=== PATIENT | female | born 1955 | race Two or more races ===

== ENCOUNTER 2018-12-29 05:35 | Day surgery (SDC) | payer OTHER ==
[~2018-12-29 05:35] MED LIST: CLONAZEPAM1 M1 PO; FORTAMET500 MG PO; LOSARTAN PO; NEURONTIN800 MG PO; NORVASC2.5 M1 PO; ZOLOFT50 MG PO
== END 2018-12-29 13:00 | disposition home or self-care (01) ==
LOC: CIR.AMB 05:35
DX: G56.02 Carpal tunnel syndrome, left upper limb (principal)

== ENCOUNTER 2021-03-02 19:45 | Emergency (ER) | payer OTHER ==
[~2021-03-02] VITALS: Ht 160 cm; Wt 99.8 kg
== END 2021-03-02 21:25 | disposition home or self-care (01) ==
LOC: ER 19:45
DX: M54.5 Low back pain (principal)

== ENCOUNTER 2021-11-11 14:12 | Emergency (ER) | payer OTHER ==
[~2021-11-11] VITALS: Ht 160 cm; Wt 54.4 kg
[2021-11-11] MEDS ORDERED: NORVASC10 MG PO (14:34)
[2021-11-11] MEDS ORDERED: COZAAR100 MG PO (14:34)
[2021-11-11] MEDS ORDERED: NAPROXEN500 MG PO (15:59)
== END 2021-11-11 16:11 | disposition home or self-care (01) ==
LOC: ER 14:12
DX: M19.90 Unspecified osteoarthritis, unspecified site (principal)

== ENCOUNTER 2022-01-17 11:43 | Inpatient (IN) | payer OTHER ==
[~2022-01-17] VITALS: Ht 160 cm; Wt 99.8 kg
[~2022-01-17 11:43] MED LIST changes: +COZAAR100 MG PO; +NAPROXEN500 MG PO; +NORVASC10 MG PO
[2022-01-17] MEDS ORDERED: SIMVASTAT PO (14:55)
[2022-01-30] MEDS ORDERED: SIMVASTATIN20 MG (13:53)
[2022-02-01] MEDS ORDERED: ELIQUIS2.5 MG PO (18:10)
[2022-02-01] MEDS ORDERED: CEFADROXIL500 MG PO (18:10)
[2022-02-01] MEDS ORDERED: PERCOCET 5-3251 EACH PO (18:10)
== END 2022-02-02 00:32 | disposition home or self-care (01) | DRG 470 ==
LOC: O/R 01-30 06:15 → SURH 01-30 06:15 → SURG 01-30 10:15 → SURH 01-30 15:39
PROVIDERS: ADMIT Orthopaedic Surgery; ATTEND Orthopaedic Surgery
PROC: 0SRD0J9 Replacement of Left Knee Joint with Synthetic Substitute, Cemented, Open Approach (ICD-10-PCS; principal; 2022-01-30 10:15)
DX: M17.12 Unilateral primary osteoarthritis, left knee (principal); D62 Acute posthemorrhagic anemia; M22.12 Recurrent subluxation of patella, left knee; E66.01 Morbid (severe) obesity due to excess calories; I10 Essential (primary) hypertension; E11.9 Type 2 diabetes mellitus without complications

== ENCOUNTER 2023-05-03 09:09 | Outpatient (CLI) | payer OTHER ==
[~2023-05-03 09:09] MED LIST changes: +CEFADROXIL500 MG PO; +ELIQUIS2.5 MG PO; +PERCOCET 5-3251 EACH PO; +SIMVASTAT PO; +SIMVASTATIN20 MG
== END 2023-05-03 09:18 | disposition home or self-care (01) ==
LOC: RAD 09:09
DX: M25.532 Pain in left wrist (principal); M79.642 Pain in left hand; M54.2 Cervicalgia; M65.4 Radial styloid tenosynovitis [de Quervain]

== ENCOUNTER → 2025-02-12 09:51 | Outpatient (CLI) | payer OTHER | END | disposition home or self-care (01) | LOC: NUCLEAR 09:51 | PROVIDERS: ATTEND Orthopaedic Surgery | DX: M81.0 Age-related osteoporosis without current pathological fracture (principal) ==

== ENCOUNTER 2025-04-07 06:59 | Outpatient (CLI) | payer OTHER ==
[2025-04-07 08:14] LABS: ALT/SGPT 17.0 U/L (12-78); AST/SGOT 11.0 U/L (15-37); BILIRUBIN TOTAL 0.42 mg/dL (0.3-1.2); BUN CREA RATIO 31.0 (7.0-25.0); CREATININE SERUM 0.75 mg/dL (0.55-1.02); GFR 76.39; GLOBULINA 3.8 G/DL (2.4-3.5); GLUCOSE FASTING 105.0 mg/dL (65-100); OSMOLALITY SERUM 287.0 MOSM/KG (275-295)
[2025-04-08 11:12] LABS: CALCIUM IONIZED 5.1 mg/dL (4.5-5.6)
== END 2025-04-07 07:04 | disposition home or self-care (01) ==
LOC: LAB 06:59
PROVIDERS: ATTEND Orthopaedic Surgery
DX: E55.9 Vitamin D deficiency, unspecified (principal); M85.9 Disorder of bone density and structure, unspecified; E56.1 Deficiency of vitamin K; E21.3 Hyperparathyroidism, unspecified; E88.9 Metabolic disorder, unspecified; M81.8 Other osteoporosis without current pathological fracture

== ENCOUNTER 2025-05-07 07:49 | Outpatient (CLI) | payer OTHER ==
[2025-05-07 08:41] LABS: BASO % 0.4 % (0.1-1.2); EOS # 0.23 (0.04-0.54); EOS % 4.5 % (0.7-7.0); LYMPH # 1.73 (1.18-3.74); LYMPH % 34.2 % (19.3-53.1); MEAN PLATELET VOLUME 10.00 fl (9.4-12.4); MONO # 0.46 (0.24-0.82); MONO % 9.1 % (4.7-12.5); NEUT # 2.61 (1.56-6.13); NEUT % 51.6 % (34.0-71.1); RED CELL DISTRIBUTION WIDTH 14.6 % (11.6-14.4)
[2025-05-07 09:20] LABS: INR 1.00
[2025-05-07 09:25] LABS: COL EPI 148 SECONDS (82-175)
[2025-05-07 09:47] LABS: URINE APPEARANCE Clear; URINE BILIRRUBIN Negative (NEGATIVE); URINE BLOOD Negative; URINE COLOR Yellow; URINE GLUCOSE Negative (NEGATIVE); URINE KETONE Negative (NEGATIVE); URINE LEUKOCYTE Small; URINE NITRATE Negative; URINE PROTEIN Negative (NEGATIVE); URINE UROBILINOGEN 0.2 E.U./dl
[2025-05-07 09:48] LABS: URINE BACTERIA 7.1 uL (0.0-1933); URINE RBC 2.0 uL (0.0-20.8); URINE WBC 16.8 uL (0.0-23.2)
[2025-05-07 10:00] LABS: ALT/SGPT 18.0 U/L (12-78); AST/SGOT 12.0 U/L (15-37); BILIRUBIN TOTAL 0.72 mg/dL (0.3-1.2); BUN CREA RATIO 28.0 (7.0-25.0); CREATININE SERUM 0.82 mg/dL (0.55-1.02); GFR 68.92; GLOBULINA 3.9 G/DL (2.4-3.5); GLUCOSE FASTING 86.0 mg/dL (65-100); OSMOLALITY SERUM 288.0 MOSM/KG (275-295)
[2025-05-07 10:15] LABS: URINE CAST 0.00 uL (0.0-1.40); URINE EPITHELIAL CELLS 1.2 uL (0.0-38.8)
== END 2025-05-07 07:55 | disposition home or self-care (01) ==
LOC: RAD 07:49
PROVIDERS: ATTEND Orthopaedic Surgery
DX: D64.9 Anemia, unspecified (principal); E88.89 Other specified metabolic disorders; D68.8 Other specified coagulation defects; N39.0 Urinary tract infection, site not specified; E11.9 Type 2 diabetes mellitus without complications; Z22.322 Carrier or suspected carrier of Methicillin resistant Staphylococcus aureus; Z76.89 Persons encountering health services in other specified circumstances

== ENCOUNTER 2025-05-12 11:36 | Outpatient (CLI) | payer OTHER | END 2025-05-12 11:40 | disposition home or self-care (01) | LOC: RAD 11:36 | PROVIDERS: ATTEND Orthopaedic Surgery | DX: M79.641 Pain in right hand (principal); G56.01 Carpal tunnel syndrome, right upper limb ==